=== PATIENT | male | born 1980 | race Caucasian/White ===

== ENCOUNTER 2022-03-29 00:07 | Emergency (ER) | payer SELFPAY ==
[~2022-03-29] VITALS: Ht 165.1 cm; Wt 68.0 kg
[2022-03-29] MEDS ORDERED: IBUPROFEN 600MG TABLET PO ONE (00:30)
[2022-03-29 00:33] VITALS: BP 138/89
== END 2022-03-29 00:34 ==
LOC: ER 00:07
DX: S40.011A Contusion of right shoulder, initial encounter (principal); S70.01XA Contusion of right hip, initial encounter; X58.XXXA Exposure to other specified factors, initial encounter; Y93.89 Activity, other specified; Y92.89 Other specified places as the place of occurrence of the external cause; Y99.8 Other external cause status
CPT/HCPCS: 99283

== ENCOUNTER 2022-03-29 00:46 | Emergency (ER) | payer SELFPAY | END 2022-03-29 01:13 | disposition left against medical advice (07) | LOC: ER 00:46 | DX: Z53.21 Procedure and treatment not carried out due to patient leaving prior to being seen by health care provider (principal) ==